=== PATIENT | female | born 1945 | race Caucasian/White ===

== ENCOUNTER → 2016-06-04 | Outpatient (CLI) | payer BC ==
[~2016-06-04] MED LIST: ASPEC81 PO; CLRD24 PO; GADAVIST IV PRN; IBUP600T44 PO; MULT-506 PO; OXYC-57 PO; PRMVC PV; TRIA0.1C20 TD
--- NOTE | 2016-06-04 12:51 | DIAGNOSTIC IMAGING REPORT ---
CAROTID ARTERY ULTRASOUND CLINICAL HISTORY: WORSENING R VISUAL FIELD CONSTRICTION COMPARISON STUDY: None. TECHNIQUE: Real-time, grayscale, and color Doppler sonography of the carotid and vertebral arteries was performed. Images were viewed in the transverse and longitudinal planes. FINDINGS: There is minimal atherosclerotic plaque. Velocity measurements are listed below. COMMON CAROTID PEAK SYSTOLIC VELOCITY (CM/S): RIGHT 91 LEFT 94 ICA PEAK SYSTOLIC VELOCITY (CM/S): RIGHT 89 LEFT 90 The systolic ratios between the internal to common carotid arteries are normal. Antegrade flow is seen in the vertebral arteries. The external carotid arteries are patent. Blood pressure in the right arm measured 112/59. Blood pressure in the left arm measured 131/68. IMPRESSION: No evidence of a hemodynamically significant stenosis. Electronically signed by: Lauro Razo M.D. 06/04/2016 12:49 PM Dictated Date/Time: 06/04/2016 12:48 PM
--- NOTE | 2016-06-04 14:09 | DIAGNOSTIC IMAGING REPORT ---
MRI orbits ORBIT COMBO CLINICAL HISTORY: WORSENING R VISUAL FIELD Constriction, optic NEUROPAK visual field loss TECHNIQUE: Multiaxial MRI acquisition pre and post gadolinium enhancement COMPARISON STUDY: None FINDINGS: Globes are symmetric. Optic nerves are unremarkable. There are no abnormal enhancement characteristics. The rectus musculature bilaterally is symmetric. Retroseptal contents are within normal limits. IMPRESSION: Normal study Electronically signed by: Erik Raymundo M.D. 06/04/2016 2:07 PM Dictated Date/Time: 06/04/2016 2:05 PM
--- NOTE | 2016-06-04 14:19 | DIAGNOSTIC IMAGING REPORT ---
MRI OF THE BRAIN WITHOUT AND WITH IV CONTRAST CLINICAL HISTORY: WORSENING R VISUAL FIELD Constriction, optic NEUROPAK visual status change COMPARISON STUDY: No previous studies for comparison. TECHNIQUE: Utilizing a 1.5 Radhika magnet and dedicated coil, multiplanar, multiecho imaging of the brain was performed pre and postcontrast administration. IV administration of 9.5 mL of Gadavist contrast was uneventful. FINDINGS: Normal diffusion-weighted imaging characteristics. No evidence for an acute ischemic insult. Signal characteristics of the cerebellar and cerebral hemispheres are unremarkable. Several very tiny punctate foci of increased signal are identified in the periventricular and deep white matter regions these are considered unremarkable for age. Postcontrast images show no evidence for an enhancing lesion. Sella and parasellar regions are unremarkable. The internal auditory canals are unremarkable. IMPRESSION: Normal MRI of the brain for age Electronically signed by: Erik Raymundo M.D. 06/04/2016 2:17 PM Dictated Date/Time: 06/04/2016 2:09 PM
== END | disposition home or self-care (01) ==
LOC: C.ULTR 12:00
PROVIDERS: ATTEND Ophthalmology
DX: H47.20 Unspecified optic atrophy (principal)